=== PATIENT | male | born 1985 ===

== ENCOUNTER → 2022-07-16 09:52 | Outpatient (BNVA) | payer OTHER, SELFPAY | PROVIDERS: PCP Internal Medicine; Visit Provider Nurse Practitioner Family | DX: G43.709 Chronic migraine without aura, not intractable, without status migrainosus (principal); R42 Dizziness and giddiness; M54.2 Cervicalgia | CPT/HCPCS: 99202 ==

== ENCOUNTER → 2022-10-13 11:25 | Outpatient (BNVA) | payer OTHER, SELFPAY | PROVIDERS: PCP Internal Medicine; Visit Provider Nurse Practitioner Family | DX: M54.2 Cervicalgia (principal); G43.709 Chronic migraine without aura, not intractable, without status migrainosus; R42 Dizziness and giddiness; Z79.899 Other long term (current) drug therapy | CPT/HCPCS: 99212 ==

== ENCOUNTER 2023-03-15 07:59 | Outpatient (AMB) | payer OTHER, SELFPAY ==
--- NOTE | 2023-03-15 08:05 | A.OFFVIS_ITS ---
Intake Vital Signs 03/15/23 08:07 Height 5 ft 11 in Weight 219 lb BMI 30.5 BP 140/74 H Blood Pressure Location Rt brachial Position Sitting Intake Visit Reasons: FOLLOW UP-Confirmation Intake Note: Patient presents for follow up. Patient states no issues or concerns today. Allergies No Known Allergies Allergy (Verified 03/15/23 08:08) Medication List - Last Reconciled 03/15/23 by EMILI Lewis ergocalciferol (vitamin D2) 1,250 mcg PO QWEEK ibuprofen 400 mg PO Q8H PRN magnesium oxide 400 mg PO BEDTIME 30 days metoprolol succinate ER 50 mg PO DAILY naratriptan take 1/2 - 1 tab at onset of headache; if no relief may repeat 1 tab after at least 4 hrs; max = 2 tabs/24 hrs orally PRN; 30 days nortriptyline 10 mg PO BEDTIME 30 days riboflavin (vitamin B2) 400 mg PO DAILY 30 days ubrogepant (Ubrelvy) 50 - 100 mg (0.5 - 1 x 100 mg) PO ONCE PRN 30 days HPI HPI Comments History of Present Illness Details 37-yr-old female presents for f/u visit. Pt denies any significant interval medical changes. He is having 1-3 migraine days per week. He is still needing to leave work 1-2 Not always taking B2 and Mag consistently- Mag may cause GI upset He did not tolerate nortriptyline. States ubrelvy was ineffective. Feels the headaches start in the neck and shoot up the back of the head and then has migraine. Finds Ibuprofen to be most helpful. Uses 400mg- which helps but does not fully abort the more severe attacks. He decided to try PT, and asked his PCP to refer him- so far he has done 2 sessions at [facility]. They suggetsed he try dry needling, which he is open to. [facility] Medical History History of COVID-19 HTN (hypertension) Low back pain Family History Father Hypertension Sister Diabetes Maternal Grandmother Lung cancer Social History Alcohol intake: never Patient Tobacco Use Status: Former Tobacco user Review of Systems Const All systems reviewed & are unremarkable except as noted in HPI and below Physical Exam Vital Signs: Last Vital Signs BP 140/74 H 03/15/23 08:07 BMI result Body Mass Index 30.5 Const General: cooperative and no acute distress Orientation/consciousness: patient oriented x3 HEENT Other: No palpable scalp tenderness Head: Yes normocephalic Resp Effort & Inspection: normal respiratory effort and able to speak in complete sentences Neuro General: patient oriented x3, gait normal and CN's II-XI intact bilaterally Cognition (Neuro): normal cognition Motor exam (neuro): 5/5 motor strength present throughout Psych Appearance: grossly normal Mental Status: mental status grossly normal Speech and movement: Normal speech and movement present Affect: normal affect Attitude: cooperative Thought process: Normal thought process present Thought content: Normal thought content present Insight: Good insight present (Psych) Judgement: Good judgement present (Psych) Assessment & Plan Assessment & Plan (1) Chronic migraine without aura: Code(s): G43.709 - Chronic migraine without aura, not intractable, without status migrainosus (2) Cervicalgia: Code(s): M54.2 - Cervicalgia Plan Continue PT. Pt may try dry needling. If ineffective, consider referral to pain management for ON block inj tx. Information given on [employer] [place] neuromodulation device. ? For acute headache treatment: Ibuprofen 400mg prn mild-mod headaches q 4hrs prn Ibuprofen 800mg prn mod-severe headache q 6-8 hrs prn Previous acute migraine medication trials: Sumatriptan- ineffective and caused headache/nausea. Naratriptan- ineffective. Ubrelvy- ineffective. Acute migraine medication contraindications: None at this time ? For headache prevention medication: May hold Riboflavin 400mg qam- advised may cuase urine color changes. Continue Magnesium 400mg- may take qod- may hold for loose stools. Offered muscle relaxer hiwever pt declined d/t risk for sedative s/e's. Previous migraine prevention medication trials: Currently on metoprolol for HTN. Nortriptyline- not tolerated. Migraine prevention medication contraindications: None at this time ? f/u in 3 months or sooner prn. Medications: Changed From ibuprofen 400 mg PO Q8H PRN headache To ibuprofen 400 - 800 mg (1 - 2 x 400 mg) PO Q4-6H 30 days PRN 90 tabs 2RF headache Discontinued naratriptan Discontinued Reason: Doctor's Order take 1/2 - 1 tab at onset of headache; if no relief may repeat 1 tab after at least 4 hrs; max = 2 tabs/24 hrs orally PRN; 30 days 12 tabs 6RF migraine headache ubrogepant (Ubrelvy) take at onset of migraine, may repeat in 2hrs (may take w/ Ibuprofen) Discontinued Reason: Doctor's Order 50 - 100 mg (0.5 - 1 x 100 mg) PO ONCE 30 days PRN 16 tabs 3RF migraine headache nortriptyline at 8pm Discontinued Reason: Doctor's Order 10 mg PO BEDTIME 30 days 30 caps 3RF Coding Level of Care Code Est Pt Level 4 (40250) Diagnoses Chronic migraine without aura G43.709 Cervicalgia M54.2
[2023-03-15 08:07] VITALS: BP 140/74; BMI 30.5
== END 2023-03-15 08:35 | disposition home or self-care (01) ==
PROVIDERS: PCP Internal Medicine; Visit Provider Nurse Practitioner Family
DX: G43.709 Chronic migraine without aura, not intractable, without status migrainosus (principal); M54.2 Cervicalgia
CPT/HCPCS: 99214

== ENCOUNTER → 2023-03-15 07:59 | Outpatient (BNVA) | payer OTHER, SELFPAY | PROVIDERS: PCP Internal Medicine; Visit Provider Nurse Practitioner Family | DX: G43.709 Chronic migraine without aura, not intractable, without status migrainosus (principal); M54.2 Cervicalgia; Z79.899 Other long term (current) drug therapy | CPT/HCPCS: 99212 ==